=== PATIENT | female | born 1980 | race Caucasian/White ===

== ENCOUNTER 2018-07-08 08:44 | Emergency (ER) | payer OTHER, SELFPAY ==
[2018-07-08 08:46] VITALS: BP 139/97; PULSE 105; RESP 16; TEMP 35.8; O2SAT 97; BMI 35.4
--- NOTE | 2018-07-08 09:04 | RAD_ITS ---
STUDY: X-RAY - LEFT SHOULDER REASON FOR EXAM: Female, 38 years old. Left shoulder pain and left upper extremity numbness. TECHNIQUE: 4 view(s) of the shoulder. COMPARISON: None. FINDINGS: Normal glenohumeral articulation. Normal acromioclavicular joint. Normal acromion. Normal humeral head and visualized proximal humerus. The soft tissue structures are unremarkable. Normal visualized pulmonary apex. RAD/Shoulder min 2 Views IMPRESSION: Normal x-ray examination of the shoulder. Electronically Signed: Michael Craig, at 10:07 EDT , Service support ,
--- NOTE | 2018-07-08 09:04 | RAD_ITS ---
STUDY: X-RAY - CERVICAL SPINE REASON FOR EXAM: Female, 38 years old. Left shoulder pain and left hand numbness. TECHNIQUE: 6 view(s) of the cervical spine were obtained including oblique views. COMPARISON: None FINDINGS: Normal anterior atlantoaxial articulation. Normal odontoid process. There is reversal of the normal cervical lordosis. Mild tilting towards the right side suggestive of possible torticollis. Normal vertebral bodies and endplates. Normal disc space heights. Normal visualized intervertebral neuroforamina. The soft tissue structures are unremarkable. RAD/Cerv Spine 4 or 5 Views IMPRESSION: Reversal of the normal cervical lordosis and possible right torticollis. Electronically Signed: Michael Craig, at 10:06 EDT , Service support ,
--- NOTE | 2018-07-08 09:04 | ED.VIS.GEN ---
History of Present Illness Chief Complaint: Upper Extremity Injury Informant: Patient Onset: Yesterday Context: Gradual Onset Timing: Continuous Quality: pain Location: neck, left shoulder Current Severity: Severe Maximum Severity: Severe Worsened by: LUE down at side. certain head positions/movements. Relieved by: holding LUE up in air/over head Associated Symptoms: numbness in left thumb only. no weakness. no injury. Narrative: Patient is having numbness distally in the thumb, and pain in the left shoulder and neck. It is worse with certain head positions. Seems to be better with holding her arm up over her head. She denies any injury or overuse that she can think of. [id number]-dgwufbda. No history of bulging disks or back issues that she knows of. No history of IV drug use, she is a non-smoker, ujw-kypzhdf-xmrixaesv diabetic and is compliant with her metformin. No history of cancer. No fevers. No symptoms in right upper extremity or her legs. No bowel or bladder dysfunction. Prior similar symptoms: No Recent Illness/Hospitalization: No - Past Medical History (1) Type 2 diabetes mellitus Status: Chronic Past Medical History - Allergies and Home Meds Allergies/Adverse Reactions: Allergies No Known Allergies Allergy (Verified 07/08/18 08:45) Primary Care Physician: Danie Lyn MD [Primary Care Provider] - Smoking Status: Never smoker Drugs: None Review of Systems Musculoskeletal: Reports: Neck pain, Extremity Pain. Denies: Back pain, Swelling Neurological: Reports: Numbness. Denies: Headache, Weakness Physical Exam Vital Signs/Narrative: Vital Signs Temp Pulse Resp BP Pulse Ox 07/08/18 08:46 96.5 F L 105 H 16 139/97 H 97 Inital Vital Signs reviewed: Yes General: Well nourished, Well developed, Acute Distress - in pain. holding LUE over head with her right. Head: Normocephalic, Atraumatic Eyes: Perrl, EOMI Neck: Supple, Nontender, No lymphadenopathy, - - gentle cervical distraction transiently improves pain Extremities: Nontender - no anterior or subacromial left shoulder tenderness. FROM, but pt resistant to put her arm down due to increasing her pain. no deformities., No edema Skin: Normal color, No rash, No Trauma Neurological: Alert, Oriented x3, Cranial nerves II-XII grossly intact, Normal Strength - 5/5 throughout LUE, including R/U/M and AIN/PIN branches., Normal DTR, Normal Gait, Parasthesia - left thumb and radial aspect of forearm; no other fingers affected, upper arm not affected. Psychological: - - anxious Diagnostic/Tx/Re-eval Clinical Impression(s) from Imaging Studies Cervical Spine X-Ray 07/08/18 09:04 IMPRESSION: Reversal of the normal cervical lordosis and possible right torticollis. Electronically Signed: Michael Kiara, at 10:06 EDT , Service support , Shoulder X-Ray 07/08/18 09:04 IMPRESSION: Normal x-ray examination of the shoulder. Electronically Signed: Michael Kiara, at 10:07 EDT , Service support , - Medical Decision Making History and exam are consistent with a C6 radiculopathy on the left. X-rays show no bony explanation for this, this does not rule out a cartilaginous disc/soft tissue problem at this level. She will need an MRI, this is not indicated emergently since she has no motor weakness. She does not have a fever or signs/symptoms of bacteremia to suggest this is a different spinal cord issue. She has no symptoms on the contralateral side. She was treated with morphine, Toradol, prednisone, gabapentin. She has some mild improvement. Will prescribe her gabapentin and prednisone as well as some Percocet but as I discussed with her I do not think this will respond well to narcotics. She is advised to follow-up for an outpatient MRI. She understands and is comfortable with this plan. ED Disposition - Plan for ED Patient: Disposition: Home or Assisted Living Diagnosis: Cervical radiculopathy at C6 Instructions: ED Cervical Radiculopathy Prescriptions: Oxycodone HCl/Acetaminophen [Percocet 5/325] 1 tab PO Q6H PRN PRN 5 Days #20 tab PRN Reason: Pain Prednisone 10 mg PO UD #33 tab Gabapentin [Neurontin] 300 mg PO TID #90 cap Referrals: Danie Lyn MD [Primary Care Provider] - As soon as possible
--- NOTE | 2018-07-08 09:09 | ED.DCSUM_ITS ---
History of Present Illness Chief Complaint: Upper Extremity Injury Informant: Patient Onset: Yesterday Context: Gradual Onset Timing: Continuous Quality: pain Location: neck, left shoulder Current Severity: Severe Maximum Severity: Severe Worsened by: LUE down at side. certain head positions/movements. Relieved by: holding LUE up in air/over head Associated Symptoms: numbness in left thumb only. no weakness. no injury. Narrative: Patient is having numbness distally in the thumb, and pain in the left shoulder and neck. It is worse with certain head positions. Seems to be better with holding her arm up over her head. She denies any injury or overuse that she can think of. Ywxrq-uomf-uxjwuect. No history of bulging disks or back issues that she knows of. No history of IV drug use, she is a non-smoker, mly-rtrsfmk-teczskemk diabetic and is compliant with her metformin. No history of cancer. No fevers. No symptoms in right upper extremity or her legs. No bowel or bladder dysfunction. Prior similar symptoms: No Recent Illness/Hospitalization: No - Past Medical History (1) Type 2 diabetes mellitus Status: Chronic Past Medical History - Allergies and Home Meds Allergies/Adverse Reactions: Allergies No Known Allergies Allergy (Verified 07/08/18 08:45) Primary Care Physician: Danie Lyn MD [Primary Care Provider] - Smoking Status: Never smoker Drugs: None Review of Systems Musculoskeletal: Reports: Neck pain, Extremity Pain. Denies: Back pain, Swelling Neurological: Reports: Numbness. Denies: Headache, Weakness Physical Exam Vital Signs/Narrative: Vital Signs Temp Pulse Resp BP Pulse Ox 07/08/18 08:46 96.5 F L 105 H 16 139/97 H 97 Inital Vital Signs reviewed: Yes General: Well nourished, Well developed, Acute Distress - in pain. holding LUE over head with her right. Head: Normocephalic, Atraumatic Eyes: Perrl, EOMI Neck: Supple, Nontender, No lymphadenopathy, - - gentle cervical distraction transiently improves pain Extremities: Nontender - no anterior or subacromial left shoulder tenderness. FROM, but pt resistant to put her arm down due to increasing her pain. no deformities., No edema Skin: Normal color, No rash, No Trauma Neurological: Alert, Oriented x3, Cranial nerves II-XII grossly intact, Normal Strength - 5/5 throughout LUE, including R/U/M and AIN/PIN branches., Normal DTR, Normal Gait, Parasthesia - left thumb and radial aspect of forearm; no other fingers affected, upper arm not affected. Psychological: - - anxious Diagnostic/Tx/Re-eval Clinical Impression(s) from Imaging Studies Cervical Spine X-Ray 07/08/18 09:04 IMPRESSION: Reversal of the normal cervical lordosis and possible right torticollis. Electronically Signed: Michael Kiara, at 10:06 EDT , Service support , Shoulder X-Ray 07/08/18 09:04 IMPRESSION: Normal x-ray examination of the shoulder. Electronically Signed: Michael Kiara, at 10:07 EDT , Service support , - Medical Decision Making History and exam are consistent with a C6 radiculopathy on the left. X-rays show no bony explanation for this, this does not rule out a cartilaginous disc/soft tissue problem at this level. She will need an MRI, this is not indicated emergently since she has no motor weakness. She does not have a fever or signs/symptoms of bacteremia to suggest this is a different spinal cord issue. She has no symptoms on the contralateral side. She was treated with morphine, Toradol, prednisone, gabapentin. She has some mild improvement. Will prescribe her gabapentin and prednisone as well as some Percocet but as I discussed with her I do not think this will respond well to narcotics. She is advised to follow-up for an outpatient MRI. She understands and is comfortable with this plan. ED Disposition - Plan for ED Patient: Disposition: Home or Assisted Living Diagnosis: Cervical radiculopathy at C6 Instructions: ED Cervical Radiculopathy Prescriptions: Oxycodone HCl/Acetaminophen [Percocet 5/325] 1 tab PO Q6H PRN PRN 5 Days #20 tab PRN Reason: Pain Prednisone 10 mg PO UD #33 tab Gabapentin [Neurontin] 300 mg PO TID #90 cap Referrals: Danie Lyn MD [Primary Care Provider] - As soon as possible
[2018-07-08] MEDS: Ondansetron ODT 4 MG Tablet 8 MG PO (09:11)
[2018-07-08] MEDS: predniSONE 20 MG Tablet 40 MG PO (09:11)
[2018-07-08] MEDS: Ketorolac 60 MG/2 ML Vial IM (09:11)
[2018-07-08] MEDS: morphine 10 MG/ML Syringe IM (09:11)
[2018-07-08] MEDS: Gabapentin 600 MG Tablet PO (09:26)
[2018-07-08 11:03] VITALS: RESP 14
== END 2018-07-08 11:04 | disposition home or self-care (01) ==
PROVIDERS: Emergency Provider Emergency Medicine; Family Provider Family Medicine; PCP Family Medicine
DX: R20.0 Anesthesia of skin (principal); M54.12 Radiculopathy, cervical region; E11.9 Type 2 diabetes mellitus without complications
CPT/HCPCS: 72050; 73030; 96372; 99283

== ENCOUNTER 2020-09-26 23:26 | Emergency (ER) | payer BC, SELFPAY ==
[2020-09-26 23:27] VITALS: BP 148/108; PULSE 118; RESP 20; TEMP 36.5; O2SAT 100; BMI 31.3
[2020-09-26 23:52] LABS: Absolute Lymphocyte Count 3.98 X10^3/uL (0.83-4.51); Absolute Neutrophil Count 4.1 X10^3/uL (2.0-7.7); Basophil# 0.01 X10^3/uL; Basophil% 0.1 % (0-1); Eosinophil# 0.12 X10^3/uL; Eosinophils% 1.3 % (0-5); Hematocrit 40.4 % (37-47); Lymphocyte # 3.98 X10^3/ul (0.83-4.51); Lymphocyte % 44.7 % (19-41); Mean Corp Hgb Conc 29.7 g/dL (32-36); Mean Corpuscular Hgb 22.7 pg (27.0-32.0); Mean Corpuscular Volume 76.4 fL (81-99); Mean Platelet Vol. 8.9 fl (6.2-12.0); Monocyte# 0.66 X10^3/uL; Monocyte% 7.4 % (0-10); NRBC Flagged by Analyzer 0 % (0-5); Neutrophil # 4.09 X10^3/uL (2.7-7.7); Neutrophil % 46.1 % (47-70); Platelet Count 486 K/mm3 (150-450); RBC Distribution Width CV 15.3 % (11.6-14.6); RBC Distribution Width SD 41.9 fl (35.1-43.9); Red Blood Count 5.29 M/mm3 (4.2-5.4); White Blood Count 8.9 K/mm3 (4.4-11.0)
[2020-09-27 00:07] LABS: Anion Gap 8 (5-15); BUN 7 mg/dL (7-18); BUN/Creat Ratio 8.9 RATIO (10-20); Calcium,Total 9.2 mg/dL (8.5-10.1); Chloride 107 mmol/L (98-107); Creatinine, Serum 0.79 mg/dL (0.55-1.02); EST Glomerular Filtration Rate 86 mL/min (>60); Est Glom Filt Rate - Afr Amer 103 mL/min (>60); Estimated Creatinine Clearance 85.18 ml/min; Glucose 176 mg/dL (74-106); Potassium 3.7 mmol/L (3.5-5.1); Sodium Level 140 mmol/L (136-145)
[2020-09-27 00:09] LABS: Internal QC Validated? YES +Cl - CLEAR BKGD; Pregnancy, Serum, hCG Quali. NEGATIVE Negative
--- NOTE | 2020-09-27 01:00 | CT_ITS ---
EXAM: CT ABDOMEN AND PELVIS WITH INTRAVENOUS CONTRAST : 1980 CLINICAL INDICATION: gi bleed -- IV PO Contrast TECHNIQUE: Helically acquired images were obtained of the abdomen and pelvis with intravenous contrast. This CT exam was performed using one or more of the following dose reduction techniques: automated exposure control, adjustment of the mA and/or kV according to patient size, and/or use of iterative reconstruction technique. This report was created using [employer] report generation technology. CONTRAST: Oral Tamp; IV Gastrografin Tamp; 100mL Isovue-370 COMPARISON: None. FINDINGS: LOWER THORAX: Unremarkable. Lung bases are clear. No cardiomegaly. No significant pericardial effusion. ABDOMEN: LIVER: Unremarkable. Homogeneous. No focal mass. GALLBLADDER AND BILE DUCTS: 1.2 cm stone in the gallbladder. No gallbladder distention or wall edema. No intra- or extrahepatic biliary ductal dilation. PANCREAS: Unremarkable. No focal cystic or solid mass. SPLEEN: Unremarkable. Normal size without focal cystic or solid mass. ADRENALS: Unremarkable. No nodules. KIDNEYS AND URETERS: Unremarkable. Normal renal size and position. No hydronephrosis. STOMACH AND BOWEL: Unremarkable. No stomach or bowel distention. No focal inflammatory change. PELVIS: APPENDIX: No evidence of acute appendicitis. BLADDER: Unremarkable. REPRODUCTIVE: 4.9 cm right ovarian cyst. IUD in the uterus. ABDOMEN and PELVIS: INTRAPERITONEAL SPACE: Unremarkable. No ascites or other fluid collection. No free air. BONES/JOINTS: Unremarkable. No suspicious lytic or blastic abnormality. SOFT TISSUES: Unremarkable. No discrete abdominal or pelvic wall hernia. VASCULATURE: Unremarkable. Abdominal aorta is non-dilated. LYMPH NODES: Unremarkable. No enlarged lymph nodes. CT/Abdomen/Pelvis WITH Contrast IMPRESSION: 1. 4.9 cm right ovarian cyst. 2. No evidence of gastrointestinal hemorrhage on the provided images. CT can be insensitive for identifying some gastrointestinal bleeds. Follow-up with nuclear medicine tagged RBC scan or endoscopy if clinically indicated. 3. Cholelithiasis. Individualized dose optimization techniques were used for this CT. at 0205 Reported and signed by: Ernesto Prasad MD Electronically Signed: Ernesto Prasad MD at 2:04 EDT Tel , Service support ,
--- NOTE | 2020-09-27 01:04 | EDS_ITS ---
HPI History of Present Illness Chief Complaint: GI Bleed Informant: patient Onset/Context/Timing Onset: Today Current Severity: Mild Maximum Severity: Mild Narrative Narrative: Patient reports a history of frequent diarrhea. Today she was having watery diarrhea. This evening she looked in the bowl and realized that she had been passing some blood. She recently saw a GI nurse practitioner and is scheduled to follow-up with a doctor for a scope. She states in the past most of her issues have been upper GI related. She denies having any history of GI bleed. [facility] Medical History Anxiety delivery delivered DM type 2 (diabetes mellitus, type 2) Iron deficiency Home Medications bupropion HCl 300 mg PO DAILY 09/26/20 [History Last Taken Unknown] dulaglutide [Trulicity] 1.5 mg SUBCUT QWEEK 09/26/20 [History Last Taken Unknown] fenofibrate nanocrystallized 145 mg PO DAILY 09/26/20 [History Last Taken Unknown] lisinopril 2.5 mg PO DAILY 09/26/20 [History Last Taken Unknown] metformin 2,000 mg PO DAILY 09/26/20 [History Last Taken Unknown] pantoprazole 40 mg PO BID 09/26/20 [History Last Taken Unknown] Allergy/AdvReac Type Severity Reaction Status Date / Time No Known Allergies Allergy Verified 09/26/20 23:29 Social History Smoking Status: Never smoker ROS ROS ED Constitutional Constitutional ED: Denies chills or fever(s) Eyes Eyes: Denies change in vision ENT ENT ED: Denies sore throat Cardiovascular Cardiovascular: Denies chest pain Respiratory/Chest Respiratory/Chest: Denies cough or dyspnea Gastrointestinal Gastrointestinal: Reports abdominal pain and other Details: Bright red blood per rectum ; Denies diarrhea, nausea or vomiting Genitourinary Genitourinary ED: Denies dysuria Musculoskeletal Musculoskeletal: Denies back pain Integumentary Denies rash Neurologic Neurologic: Denies headache(s) or weakness Psychiatric Psychiatric: Denies anxiety or depression Endocrine Endocrinology: Denies polydipsia or polyuria Allergic/Immunologic Allergic/Immunologic ED: Denies urticaria EXAM Physical Exam Const Vital Signs: 09/26/20 23:27 Temperature 97.7 F L Temperature Source Oral Pulse Rate 118 H Respiratory Rate 20 H Blood Pressure 148/108 H Blood Pressure Mean 121 Pulse Ox 100 Positive well nourished and well developed General Appearance ED: well developed HEENT Reports normocephalic and head/scalp atraumatic Eyes PERRL and EOMs intact bilaterally Neck supple Chest Wall inspection of chest normal and palpation of chest normal Resp normal respiratory effort and clear to auscultation bilaterally Cardio regular rate and regular rhythm GI normal to inspection, nondistended, normoactive bowel sounds Palpation: soft Back/Spine no CVA tenderness Extremity normal to inspection Neuro oriented x3 and no sensory deficits noted Sensorium / Orientation: alert Motor Exam: strength 5/5 throughout Psych mental status grossly normal Skin no rashes or lesions noted MDM MDM MDM Narrative Medical decision making narrative: Lab work, stool guaiac, CT abdomen pelvis are obtained. Lab Data Attestation: I reviewed the patient's lab results. Labs: Laboratory Results - last 24 hr 09/26/20 09/26/20 09/26/20 23:32 23:32 23:53 WBC 8.9 RBC 5.29 Hgb 12.0 Hct 40.4 MCV 76.4 L MCH 22.7 L MCHC 29.7 L RDW Std Deviation 41.9 RDW Coeff of Mimi 15.3 H Plt Count 486 H MPV 8.9 Immature Gran % (Auto) 0.400 Neut % (Auto) 46.1 L Lymph % (Auto) 44.7 H [place] % (Auto) 7.4 Eos % (Auto) 1.3 Baso % (Auto) 0.1 Absolute Neuts (auto) 4.1 Absolute Lymphs (auto) 3.98 Nucleated RBC % 0 Sodium 140 Potassium 3.7 Chloride 107 Carbon Dioxide 25.0 Anion Gap 8 BUN 7 Creatinine 0.79 Estim Creat Clear Calc 85.18 Est GFR (MDRD) Af Amer 103 Est GFR (MDRD) Non-Af 86 BUN/Creatinine Ratio 8.9 L Glucose 176 H Calcium 9.2 Serum , Qual NEGATIVE Radiography Diagnostic Testing: Radiology Impression Abdomen/Pelvis CT 09/27/20 01:00 IMPRESSION: 1. 4.9 cm right ovarian cyst. 2. No evidence of gastrointestinal hemorrhage on the provided images. CT can be insensitive for identifying some gastrointestinal bleeds. Follow-up with nuclear medicine tagged RBC scan or endoscopy if clinically indicated. 3. Cholelithiasis. Individualized dose optimization techniques were used for this CT. at 0205 Reported and signed by: Ernesto Prasad MD Electronically Signed: Ernesto Prasad MD at 2:04 EDT Tel , Service support , Treatment and Re-Evaluation Comments:: We are advised by labs that the stool guaiac test was negative. Blood work is unremarkable with a normal hemoglobin. CT scan reveals evidence of a right ovarian cyst but no evidence of GI hemorrhage or abnormal bowel wall thickening. Test results are discussed with the patient. She will continue to monitor her symptoms and follow-up with her GI doctor. She was given return instructions. Discharge Plan Triage Chief Complaint: GI Bleed ED Provider: Eun Sims Dx/Rx/DC Orders Clinical Impression: GI bleed, Diarrhea Instructions: ED Diarrhea, Unknown Cause Prescriptions: No Action pantoprazole 40 mg tablet,delayed release (DR/EC) 40 mg PO BID RF: 0 metformin 500 mg tablet extended release 24 hr 2,000 mg PO DAILY RF: 0 lisinopril 2.5 mg tablet 2.5 mg PO DAILY RF: 0 bupropion HCl 300 mg tablet extended release 24 hr 300 mg PO DAILY RF: 0 fenofibrate nanocrystallized 145 mg tablet 145 mg PO DAILY RF: 0 Trulicity 1.5 mg/0.5 mL pen injector 1.5 mg subcut QWEEK RF: 0 Primary Care Provider: Danie Lyn Referrals: Danie Lyn MD [Primary Care Provider] - Activity Restrictions/Additional Instructions: Follow-up with your GI doctor as discussed. Disposition Disposition: Home, self care Discharge Date/Time: 09/27/20 02:34
== END 2020-09-27 02:34 | disposition home or self-care (01) ==
PROVIDERS: Emergency Provider Emergency Medicine; PCP Family Medicine
DX: K92.2 Gastrointestinal hemorrhage, unspecified (principal); R19.7 Diarrhea, unspecified; F41.9 Anxiety disorder, unspecified; E11.9 Type 2 diabetes mellitus without complications; Z79.899 Other long term (current) drug therapy
CPT/HCPCS: 74177; 80048; 82274; 84703; 85025; 87506; 99283; Q9967; A4216

== ENCOUNTER 2020-11-18 10:59 | Day surgery (SDC) | payer BC, SELFPAY ==
--- NOTE | 2020-11-16 13:54 | HP.PCM_ITS ---
History and Physical Date of Admission: 11/18/20 Ingrdi Carmona MD Physician Specialty: INSPECTOR AND TESTER H&P ? Addendum Encounter Date: 10/28/2020 Expand AllCollapse All Expand All by Default Hide copied text Hover for details Pre-Op History and Physical ? HPI: The patient is a 40 year old female presenting for pre-operative visit. She is scheduled for hysteroscopy, shona endometrial ablation, possible IUD removal with reisertion, for AUB, BTB with IUD in place, Heavy menses on 11/18/20. Procedure discussed along with risks, benefits and complications. Other alternatives discussed for management. Consent form signed? Yes. ? ? PAST MEDICAL HISTORY PAST MEDICAL HISTORY Diagnosis Date ? DM (diabetes mellitus) (HCC) ? ? ? PAST SURGICAL HISTORY PAST SURGICAL HISTORY Procedure Laterality Date ? PAST SURGICAL HISTORY OF ? ? ? C section x6 ? TUBAL LIGATION, ? CURRENT MEDICATIONS Current Outpatient Medications Medication Sig Dispense Refill ? buPROPion XL (WELLBUTRIN XL) 300 mg 24 hr tablet Take 1 tablet by mouth once daily. 90 tablet 1 ? metFORMIN ER (GLUCOPHAGE XR) 500 mg 24 hr tablet take 4 tablets once a day with breakfast 360 tablet 1 ? lisinopril 2.5 mg tablet Take 1 tablet by mouth once daily. 90 tablet 1 ? Erythromycin-Benzoyl Peroxide (BENZAMYCIN) gel Apply to affected area twice daily. 90 g 5 ? Multivitamins-Iron tab Take 1 tablet by mouth once daily. ? ? ? pantoprazole DR (PROTONIX) 40 mg tablet Take 1 tablet by mouth twice daily. Take on empty stomach, 1/2 hr before meal. 60 tablet 5 ? Lancets lancets Test blood sugar(s) 1 times daily. Dx: Type 2 DM - Uncontrolled E11.65 Insulin: No 100 Each 11 ? levonorgestrel (MIRENA) 20 mcg/24 hours (6 yrs) 52 mg IUD 1 Each by INTRAUTERINE route as directed. LOT # [id number] EXP 09/12/22 Dinorah Yun MARTEN 1 Each 0 ? dulaglutide (TRULICITY) 1.5 mg/0.5 mL pen injector Inject 1.5 mg subcutaneously one time a week. Inject once per week. Discard Pen After 2 mL 11 ? fenofibrate nanocrystallized (TRICOR) 145 mg tablet Take 1 tablet by mouth once daily. 90 tablet 3 ? Lancets (ONETOUCH ULTRASOFT LANCETS) lancets Test blood sugar(s) 1 times daily. Dx: Type 2 DM - Uncontrolled , Insulin: No 100 Each 11 ? norethindrone (AYGESTIN) 5 mg tablet Take 1 tablet TID until bleeding stops, the BID x 3 days, the daily x 3 days. 35 tablet 0 ? blood sugar diagnostic (BLOOD GLUCOSE TEST) test strip Test blood sugar(s) 1 times daily. Dx: Type 2 DM - Uncontrolled Insulin: No 50 Strip 11 ? latanoprost (XALATAN) 0.005 % ophthalmic solution Use 1 Drop in both eyes daily at bedtime. ? 6 ? blood sugar diagnostic (ONETOUCH ULTRA TEST) test strip Test blood de la cruz gar(s) 1 times daily. Dx: Type 2 DM - Uncontrolled Insulin: No 50 Strip 11 ? No current facility-administered medications for this visit. ? ? ALLERGIES: Patient has no known allergies. ? PERSONAL HISTORY: SOCIAL HISTORY Social History ? Tobacco Use ? Smoking status: Never Smoker ? Smokeless tobacco: Never Used Vaping Use ? Vaping Use: Never used Substance Use Topics ? Alcohol use: No ? Drug use: Never ? FAMILY HISTORY: FAMILY HISTORY FAMILY HISTORY Problem Relation Age of Onset ? Diabetes Mother ? ? Diabetes Father ? ? Heart Father ? ? COPD Father ? ? Diabetes Maternal Grandmother ? ? Breast Cancer Maternal Grandmother ? ? ? REVIEW OF SYMPTOMS: negative except as noted above PHYSICAL EXAMINATION: ? VITALS: Blood pressure 136/84, weight 184 lb (83.5 kg), last menstrual period 06/16/2020. ? GENERAL: The patient is well nourished, well hydrated in no acute distress. , The patient is oriented to time, place, and person. NECK: full range of motion NEURO: alert and oriented x 3 ? IMPRESSION: AUB, BTB with IUD, Heavy menses ? PLAN: Hysteroscopy, Shona endometrial ablation, possible IUD removal with reinsertion ? Pt has been counseled on risks/benefits and alternatives of surgery including but not limited to anesthesia, bleeding, infection, uterine perforation with subsequent injury to pelvic structures including bowel, bladder, ureters and vessels. Pt wishes to proceed with surgery at this time. Failed ablation reviewed- if fails will send to [facility] for surgical mgmt with hysterectomy Pre op instructions reviewed PRE OP CLEARANCE OBTAINED - completed 11/15/[address] Lyn [facility]. ? ? I have reviewed and updated past medical and surgical history, medications and allergies Ingrid Carmona MD ?8:25 AM Office Visit on 10/28/2020 Office Visit on 10/28/2020 Revision History Note shared with patient
[2020-11-18] VITALS (8 sets, daily range): BP systolic 117–125; BP diastolic 81–97; PULSE 84–93; RESP 16; TEMP 35.9–36.9; O2SAT 96–98; BMI 30.4
[2020-11-18 11:25] LABS: Internal QC Validated? YES +Cl - CLEAR BKGD; Pregnancy, Urine Negative Negative
[2020-11-18 11:48] LABS: Hemoglobin 13.2 g/dL (12.0-15.0); Mean Corp Hgb Conc 31.4 g/dL (32-36); Mean Corpuscular Hgb 24.2 pg (27.0-32.0); Mean Corpuscular Volume 77.1 fL (81-99); Mean Platelet Vol. 8.8 fl (6.2-12.0); Platelet Count 435 K/mm3 (150-450); RBC Distribution Width SD 49.1 fl (35.1-43.9); Red Blood Count 5.45 M/mm3 (4.2-5.4); White Blood Count 6.9 K/mm3 (4.4-11.0)
[2020-11-18 11:55] LABS: Bedside Glucose 147 mg/dL (70-110)
--- NOTE | 2020-11-18 12:25 | PCM.OPRPT ---
Report of Operation Date of Procedure: 11/18/20 Pre-Operative Diagnosis: AUB Post-Operative Diagnosis: Same Surgery/Procedure Performed:: Hysteroscopy, Isatu Ablation, IUD removal with reinsertion of same mirena device Description of Surgical Findings:: Normal endometrium, IUD strings visualized and removed without difficulty. After ablation complete the MIRENA was placed back into cavity using Long Lani- proper position confirmed by Hysteroscopy. Surgeon: Ingrid Le Type of Anesthesia: MAC Special Medications: none Specimen's removed: none- The mirena IUD was removed prior to Ablation and then reinserted after ablation was performed. Drains: none Estimated Blood Loss (mL): <5ccc Fluids Replaced: 400 Description of Procedure: After informed consent was obtained patient taken to the operating room she is placed in supine position she is given anesthesia simply self insert she is prepped draped normal sterile fashion. Bladder was drained prior to the start of the procedure. At this time the weighted speculum was placed the posterior fornix of the vagina then a single-tooth tenaculum was used to grasp the anterior lip of the cervix. IUD strings visualized- and IUD removed intact without complication. At this time the uterus was sounded to approximately 8 cm the endocervical canal sounded to 3 cm. Next cervix was dilated in incremental fashion. Once adequate dilatation was achieved the hysteroscope was inserted using normal saline as distention medium. On hysteroscopy there were no gross abnormalities. Both tubal ostia were visualized. At this time the Isatu device was opened. The Isatu was set at 5.5 cm. The device was activated. Prior to activation the field test was performed and cavity was intact. The device was then fired and activated for 120 seconds. Once the 120 seconds was completed the device was removed intact and the tenaculum was removed. Good hemostasis was appreciated. The Mirena IUD was then grasped long lani and replaced at fundal aspect of uterus without complication. Hysteroscopy performed to confirm proper placement. Weighted speculum was removed. Vaginal sweep was performed is negative. There were no complications. Anticipated normal postoperative course for this patient. Instrument and lap count were correct ?2. Grafts/Implants Used: IUD- MIRENA Procedure Start Time: 12:16 Procedure Stop Time: 12:25 Complications none Admit VTE Documentation VTE Present on Admission: Yes VTE Mechan Device Prophylaxis: SCD's VTE Pharm Prophylaxis ordered?: No Reason prophylaxis not ordered:: Procedure Not Indicated
--- NOTE | 2020-11-18 12:31 | EX.PCM.DISCH ---
Discharge Instructions Procedure D&C Diet Discharge Diet: No restrictions Activity May resume sexual activity in: 1 week Dressing / Incision Call your doctor if you observe: Fever of 101 or Higher, Inability to urinate, Using more than 1 pad per hour and Uncontrolled pain Follow Up Care Please Follow Up With: Ingrid Le MD When: 1-2 weeks post OP if you need an appointment please call [phone] Test Results: Test results from this visit will be discussed in further detail at your follow-up appointment, if applicable. Discharge Plan Admission Attending Provider: Ingrid Le Primary Care Provider: Danie Lyn Discharge Orders/Prescriptions Prescriptions: No Action pantoprazole 40 mg tablet,delayed release (DR/EC) 40 mg PO LUNCH RF: 0 metformin 500 mg tablet extended release 24 hr 2,000 mg PO DAILY RF: 0 lisinopril 2.5 mg tablet 2.5 mg PO DAILY RF: 0 bupropion HCl 300 mg tablet extended release 24 hr 300 mg PO DAILY RF: 0 fenofibrate nanocrystallized 145 mg tablet 145 mg PO DAILY RF: 0 Trulicity 1.5 mg/0.5 mL pen injector 1.5 mg subcut QWEEK RF: 0 Disposition Discharge Orders: Discharge Patient (Routine); Ordered 11/18/20 Ordered By: Dr. Ingrid Le
== END 2020-11-18 14:15 | disposition home or self-care (01) ==
LOC: SDC 10:59 → AC 11:00
PROVIDERS: PCP Family Medicine; Referring Provider Obstetrics & Gynecology; Visit Provider Obstetrics & Gynecology
PROC: 0U5B8ZZ Destruction of Endometrium, Via Natural or Artificial Opening Endoscopic (ICD-10-PCS; CPT 58558; principal; 2020-11-18 12:25)
DX: N93.9 Abnormal uterine and vaginal bleeding, unspecified (principal); N92.0 Excessive and frequent menstruation with regular cycle; E11.9 Type 2 diabetes mellitus without complications; F41.9 Anxiety disorder, unspecified; K21.9 Gastro-esophageal reflux disease without esophagitis; E78.00 Pure hypercholesterolemia, unspecified; I10 Essential (primary) hypertension; Z79.84 Long term (current) use of oral hypoglycemic drugs; Z79.899 Other long term (current) drug therapy
CPT/HCPCS: 58300; 58301; 58563; 81025; 82962; 85027; J7120; J2405